=== PATIENT | male | born 1985 | race Caucasian/White ===

== ENCOUNTER 2023-08-19 17:53 | Emergency (ER) | payer OTHER ==
[~2023-08-19] VITALS: Ht 175.3 cm; Wt 80.3 kg
[2023-08-19] MEDS ORDERED: IBUPROFEN 400 MG TABLET ONE (19:15)
[2023-08-19] MEDS: IBUPROFEN 400 MG TABLET PO ONE (19:24)
[2023-08-19 21:15] VITALS: BP 121/74; TEMP 98; O2SAT 98
== END 2023-08-19 21:15 | disposition home or self-care (01) ==
LOC: ER 17:53
DX: M79.642 Pain in left hand (principal); F32.A Depression, unspecified; V29.99XA Rider (driver) (passenger) of other motorcycle injured in unspecified traffic accident, initial encounter; Y93.89 Activity, other specified; Y92.89 Other specified places as the place of occurrence of the external cause; Y99.8 Other external cause status
CPT/HCPCS: 73130-TC